=== PATIENT | male | born 1980 | race African-American/Black ===

== ENCOUNTER 2020-08-19 23:26 | Emergency (ER) | payer MEDICAID ==
[~2020-08-19] VITALS: Ht 172.7 cm; Wt 65.0 kg
[2020-08-20 03:48] VITALS: BP 130/90
== END 2020-08-20 03:50 | disposition home or self-care (01) ==
LOC: ER 23:26
DX: L03.115 Cellulitis of right lower limb (principal); Z88.5 Allergy status to narcotic agent
CPT/HCPCS: 73590; 93971; 99284